=== PATIENT | female | born 1935 | race Caucasian/White ===

== ENCOUNTER 2020-11-20 10:10 | Emergency (ER) | payer MEDICARE, SELFPAY ==
[2020-11-20 10:11] VITALS: BP 188/92; PULSE 104; RESP 18; TEMP 36.6; O2SAT 98; BMI 27.6
--- NOTE | 2020-11-20 10:21 | RAD_ITS ---
STUDY: X-RAY - LEFT ANKLE REASON FOR EXAM: Female, 85 years old. Injury TECHNIQUE: 3 view(s) of the ankle. COMPARISON: None. FINDINGS: Normal visualized distal tibia and fibula. There is a nondisplaced transverse fracture of the medial malleolus. Normal tibiotalar articulation and ankle mortise. Normal visualized talus and calcaneus. The visualized subtalar, talonavicular, calcaneocuboid and tarsal articulations are normal. Medial soft tissue swelling. RAD/Ankle min 3 Views IMPRESSION: Nondisplaced transverse fracture of the medial malleolus with overlying soft tissue swelling. Electronically Signed: Prabhjot Patterson MD at 11:21 EDT , Service support ,
--- NOTE | 2020-11-20 10:21 | CT_ITS ---
STUDY: CT BRAIN WITHOUT CONTRAST REASON FOR EXAM: Female, 85 years old. Injury/trauma RADIATION DOSAGE (If Supplied By Facility): CTDIvol = ( 44.99 ) mGy, DLP = ( 779.24 ) mGycm TECHNIQUE: Transaxial CT imaging of the brain was performed without administration of intravenous contrast material. Individualized dose optimization techniques were used for this CT. COMPARISON: No relevant priors. FINDINGS: Normal soft tissue structures. Normal calvarium. There is mild cerebral atrophy with widening of the extra-axial spaces and ventricular dilatation. There are areas of decreased attenuation within the white matter tracts of the supratentorial brain, consistent with microvascular disease changes. Normal basal ganglia and thalami. Normal brainstem. Normal cerebellum. There is no intracranial hemorrhage. There are no findings of an acute ischemic infarction. Atherosclerotic calcification of the vertebral arteries and cavernous portions of the internal carotid arteries bilaterally. Normal visualized paranasal sinuses. CT/Brain/Head without Contrast IMPRESSION: Chronic involutional changes of the brain. Electronically Signed: Prabhjot Patterson MD at 11:20 EDT , Service support ,
--- NOTE | 2020-11-20 10:21 | RAD_ITS ---
STUDY: X-RAY - RIGHT ELBOW REASON FOR EXAM: Female, 85 years old. Injury TECHNIQUE: 3 view(s) of the elbow. COMPARISON: None. FINDINGS: Normal visualized humerus, radius and ulna. Normal radiocapitellar and ulnotrochlear articulations. The soft tissue structures are unremarkable. RAD/Elbow min 3 Views IMPRESSION: Normal x-ray examination of the elbow. Electronically Signed: Prabhjot Patterson MD at 11:21 EDT , Service support ,
--- NOTE | 2020-11-20 10:23 | EDS_ITS ---
HPI HPI - Fall History of Present Illness Chief Complaint: Fall Informant: patient and family Occured/Mechanism Occurred: Today Mechanism/Context: Yes same level fall and Yes trip Narrative: Lost her footing and tripped Usually ambulates: Without assistance Pain/Injury Location: scalp/head, left ankle, right elbow Current Severity: Mild Maximum Severity: Moderate Worsened by: palpation Relieved by: leaving alone Associated Symptoms Associated Symptoms: Positive for Loss of consciousness and Amnesia; Negative for Parasthesias, Weakness and Loss of function Length of loss of consciousness: brief Narrative Narrative: Patient was in [employer] with her daughter, daughter states that her mother was out in front of her and she saw her seem to get tangled up with her toes and fall to the floor with a brief loss of consciousness. They did not try to get her up to walk afterwards. She is on aspirin but no anticoagulants. No recent illness, patient denies any prodromal symptoms but is amnestic to a period of time when she lost consciousness. Tetanus Immunization: Unknown [facility] Medical History (Updated 11/20/20 @ 14:[address] Steve Johnson MD) Hypertension Allergy/AdvReac Type Severity Reaction Status Date / Time No Known Allergies Allergy Verified 11/20/20 10:14 Social History Smoking Status: Never smoker [facility] ED Constitutional Constitutional ED: Denies chills or fever(s) Eyes Eyes: Denies change in vision or diplopia ENT ENT ED: Denies ear pain, epistaxis, facial pain or rhinorrhea Cardiovascular Cardiovascular: Denies chest pain or palpitations Respiratory/Chest Respiratory/Chest: Denies cough or dyspnea Gastrointestinal Gastrointestinal: Denies abdominal pain, diarrhea, melena, nausea or vomiting Genitourinary Genitourinary ED: Denies dysuria or hematuria Musculoskeletal Musculoskeletal: Reports extremity pain; Denies back pain or neck pain Integumentary Reports laceration and wounds; Denies abscess, Abrasions or rash Neurologic Neurologic: Reports headache(s); Denies confusion, paresthesias or weakness EXAM Physical Exam Const Vital Signs: 11/20/20 10:11 11/20/20 14:13 11/20/20 14:14 Temperature 97.9 F Temperature Source Temporal Pulse Rate 104 H Respiratory Rate 18 Respiratory Effort Normal Respiratory Depth Normal Respiratory Pattern Normal Blood Pressure 188/92 H 168/75 H Blood Pressure Mean 124 106 Pulse Ox 98 Oxygen Delivery Method Room Air Positive well nourished and well developed General Appearance ED: well developed and NAD HEENT Reports TM's clear and nasal mucous membranes and turbinates normal HEENT Narrative: Right temporoparietal scalp laceration. No crepitance or depression. No myers sign. Face and Sinus: Negative for facial tenderness Tympanic Membrane ED: Yes TM's clear Eyes PERRL and EOMs intact bilaterally Visual Acuity: other Other Details: no entrapment or pain with extraocular movements Neck full ROM and supple General: Negative for tenderness Chest Wall inspection of chest normal and palpation of chest normal Chest: symmetrical chest wall rise; Negative for crepitus or tenderness Resp normal respiratory effort and clear to auscultation bilaterally Percussion: other equal BS bilat Cardio no murmurs Rate: regular rate Rhythm: regular rhythm GI normal to inspection, nondistended, normoactive bowel sounds, soft to palpation and non-tender Back/Spine normal ROM Cervical Spine: Negative for cervical spine tenderness Thoracic Spine / Upper Back: Negative for thoracic spinal tenderness Lumbar Spine / Lower Back: Negative for lumbar spinal tenderness Extremity full ROM Extremity Narrative: 2 skin tears right lateral elbow with minor tenderness there. Contusion with tenderness left medial malleolus with full range of motion and no deformity. No tenderness any other bony prominences throughout all 4 extremities, full range of motion all joints. General Extremety ED: Negative for tenderness Neuro oriented x3, CN's II-XII intact bilaterally, moves all extremities, no focal motor deficits and no sensory deficits noted Matthew Coma Scale: document GCS findings Spontaneous Obeys Commands Oriented 15 Sensorium / Orientation: awake and alert Psych mental status grossly normal and thought process normal Skin Skin Narrative: Skin tears right elbow. Contusion with intact skin left ankle. 5 cm full-thickness subcutaneous laceration right temporoparietal scalp. Lesions: no lesions Rashes: no rashes MDM MDM MDM Narrative Medical decision making narrative: Patient scalp laceration was repaired. Her CT is negative, right elbow negative, nursing cleansed and dressed her skin tears which do not require repair. X-rays of her left ankle showed nondisplaced medial malleolus fracture. She has neurovascularly intact, and actually has pretty good range of motion. Discussed with orthopedics Dr. Sharp. After reviewing the x-rays, he states it would be okay if she put partial weightbearing on this fracture in a walking boot, and if so would be able to follow-up safely as an outpatient. We placed her in a boot, give her a walker tomorrow for a walking test, and she ambulated very well with minimal to no pain with it. She prefers to go home. Family will be in and out of her home although they will not be there 29/08, and they prefer to have her go home and follow-up as an outpatient which I am fine with. We discussed reasons to return. Radiography Diagnostic Testing: Clinical Impression(s) from Imaging Studies Ankle X-Ray 11/20/20 10:21 IMPRESSION: Nondisplaced transverse fracture of the medial malleolus with overlying soft tissue swelling. Electronically Signed: Prabhjot Patterson MD at 11:21 EDT , Service support , Brain CT 11/20/20 10:21 IMPRESSION: Chronic involutional changes of the brain. Electronically Signed: Prabhjot Patterson MD at 11:20 EDT , Service support , Elbow X-Ray 11/20/20 10:21 IMPRESSION: Normal x-ray examination of the elbow. Electronically Signed: Prabhjot Patterson MD at 11:21 EDT , Service support , Procedures Lacerations R parietotemporal scalp: Length: 5 cm Depth: Sub Q Shape: Linear Prep: Sterile Conditions and Chlorhexadine Laceration repair: Irrigated, Lidocaine with epi (2cc) and Local Irrigated (ml): 60 Number of Sutures/[place]: 5 Suture Information: - (skin hailey) Comment: Good skin edge apposition and hemostasis Discharge Plan Triage Chief Complaint: Fall ED Provider: Steve Johnson Dx/Rx/DC Orders Clinical Impression: Closed head injury with brief loss of consciousness, Laceration of scalp, Closed nondisplaced fracture of medial malleolus of left tibia Instructions: ED Ankle Fracture, ED Head Injury (Adult), ED Laceration Scalp Stitches or [place] Primary Care Provider: Campos Samson Referrals: Sanju Sharp MD [STAFF PHYSICIAN] - As soon as possible (next week -- call for appt) Campos Samson MD [Primary Care Provider] - 5 Days for suture removal (5-7 day follow up for removal ok) Disposition Disposition: Home, Self Care
[2020-11-20] MEDS: Acetaminophen 325 MG Tablet 650 MG PO (11:30)
[2020-11-20] MEDS: Lidocaine 2% /Epi 1:100 (20ml) 20 ML VIAL 10 ML INFILT (11:31)
[2020-11-20 14:13] VITALS: BP 168/75
[2020-11-20 15:50] VITALS: PULSE 90
== END 2020-11-20 15:53 | disposition home or self-care (01) ==
PROVIDERS: Emergency Provider Emergency Medicine; PCP Internal Medicine
DX: S01.01XA Laceration without foreign body of scalp, initial encounter (principal); S82.55XA Nondisplaced fracture of medial malleolus of left tibia, initial encounter for closed fracture; S51.011A Laceration without foreign body of right elbow, initial encounter; W01.0XXA Fall on same level from slipping, tripping and stumbling without subsequent striking against object, initial encounter; Y93.9 Activity, unspecified; Y92.9 Unspecified place or not applicable; I10 Essential (primary) hypertension; Z79.82 Long term (current) use of aspirin
CPT/HCPCS: 12002; 70450; 73080; 73610; 99285

== ENCOUNTER → 2021-08-27 | Outpatient (CLI) | payer MEDICARE, SELFPAY ==
--- NOTE | 2021-08-27 08:03 | MRI_ITS ---
EXAM: MR LUMBAR SPINE WITHOUT INTRAVENOUS CONTRAST CLINICAL INDICATION: Lumbar pain with right radiculopathy TECHNIQUE: Multiplanar and multisequence MR images of the lumbar spine without intravenous contrast. This report was created using [employer] technology. COMPARISON: None. FINDINGS: VERTEBRAE: Moderate scoliosis of the lumbar spine convex to the left measuring 15 degrees centered at L4. SPINAL CORD: Unremarkable. Normal position and signal intensity of the conus medullaris. SOFT TISSUES: Unremarkable. DISCS/SPINAL CANAL/NEURAL FORAMINA: T12-L1: Severe disc space narrowing. Retrolisthesis of T12 on L1 measuring 5 mm. Dural sac is narrowed to 7 mm consistent with moderate spinal stenosis. L1-L2: Modic type I changes adjacent to the endplates. Marked disc space narrowing and mild generalized disc bulge. This combined with congenitally short pedicles narrows the sac to 5 mm consistent with severe spinal stenosis and compression of the cauda equina. Normal neuroforamina. L2-L3: Marked disc space narrowing and mild generalized disc bulge. This combined with congenitally short pedicles narrows the sac to 5 mm consistent with severe spinal stenosis and compression of the cauda equina. Moderate bilateral facet arthropathy. Normal neuroforamina. L3-L4: Marked disc space narrowing and mild generalized disc bulge. This combined with congenitally short pedicles and marked bilateral facet arthropathy with ligamentum flavum buckling narrows the sac to about 4 mm consistent with severe spinal stenosis and compression of the cauda equina. Normal neuroforamina. L4-L5: 4 mm of anterolisthesis of L4 on L5. Marked disc space narrowing and mild disc bulge. This combined with congenitally short pedicles and severe bilateral facet arthropathy with ligamentum flavum buckling narrows the to 3 mm or less consistent with severe spinal stenosis and compression of the cauda equina. Normal neuroforamina. L5-S1: Marked disc space narrowing and moderate generalized disc bulge. This combined with congenitally short pedicles minimally narrows the canal to 9 mm. Moderate bilateral facet arthropathy. Borderline spinal stenosis L5-S1 due to generalized disc bulge and congenitally short pedicles with moderate facet arthropathy. Normal neuroforamina. MRI/Spine Lumbar (Routine) IMPRESSION: 1. Severe spinal stenosis L1-L2 through L4-L5 associated with marked disc space narrowing and disc bulges, congenitally short pedicles and facet arthropathy causing severe compression of the cauda equina at these levels. 2. Moderate spinal stenosis at T12-L1 due to retrolisthesis of T12 on L1 measuring 5 mm. 3. Moderate scoliosis of the lumbar spine convex to the left measuring 15 degrees centered at L4. Electronically Signed: Carlos Sanabria MD at 2:42 EDT ,
== END | disposition home or self-care (01) ==
PROVIDERS: PCP Internal Medicine; Referring Provider Orthopaedic Surgery; Visit Provider Orthopaedic Surgery
DX: M47.16 Other spondylosis with myelopathy, lumbar region (principal)
CPT/HCPCS: 72148

== ENCOUNTER → 2023-05-26 | Outpatient (CLI) | payer MEDICARE, SELFPAY ==
[2023-05-26 16:43] LABS: Amphetamine Urine VISTA NEGATIVE (<1000 ng/mL); Barbiturate Urine VISTA NEGATIVE (< 200 ng/mL); Benzodiazepine Urine VISTA NEGATIVE (< 200 ng/mL); Cocaine Urine VISTA NEGATIVE (< 300 ng/mL); Ecstacy Urine VISTA NEGATIVE (< 500 ng/mL); Methadone Urine VISTA NEGATIVE (< 300 ng/mL); PCP Urine VISTA NEGATIVE (< 25 ng/mL); THC Urine VISTA NEGATIVE (< 50 ng/mL); Vista UDS pH Range 5
== END | disposition home or self-care (01) ==
PROVIDERS: PCP Internal Medicine; Referring Provider Anesthesiology; Visit Provider Anesthesiology
DX: F11.20 Opioid dependence, uncomplicated (principal)
CPT/HCPCS: 80307

== ENCOUNTER → 2023-11-24 | Outpatient (CLI) | payer MEDICARE, SELFPAY ==
[2023-11-24 13:03] LABS: Amphetamine Urine VISTA NEGATIVE (<1000 ng/mL); Barbiturate Urine VISTA NEGATIVE (< 200 ng/mL); Benzodiazepine Urine VISTA NEGATIVE (< 200 ng/mL); Cocaine Urine VISTA NEGATIVE (< 300 ng/mL); Ecstacy Urine VISTA NEGATIVE (< 500 ng/mL); Methadone Urine VISTA NEGATIVE (< 300 ng/mL); PCP Urine VISTA NEGATIVE (< 25 ng/mL); THC Urine VISTA NEGATIVE (< 50 ng/mL); Vista UDS pH Range 5
== END | disposition home or self-care (01) ==
PROVIDERS: PCP Internal Medicine; Referring Provider Anesthesiology; Visit Provider Anesthesiology
DX: F11.20 Opioid dependence, uncomplicated (principal)
CPT/HCPCS: 80307